=== PATIENT | female | born 1950 | race Caucasian/White ===

== ENCOUNTER → 2021-02-22 | Outpatient (CLI) | payer MEDICARE | LOC: ZCOL.LAB 16:59 | DX: I87.319 Chronic venous hypertension (idiopathic) with ulcer of unspecified lower extremity (principal) ==

== ENCOUNTER 2023-06-03 11:49 | Inpatient (IN) | payer MEDICARE ==
[~2023-06-03] VITALS: Ht 172.7 cm; Wt 132.0 kg
[~2023-06-03 11:49] MED LIST: ASPIRIN 81M81 MG/TA2 PO; CEFTIN500 MG PO; DECADRON6 MG PO; DOXYCYCLINE 10100 MG PO; FOLIC ACID 11 MG/TA1 PO; GLUCOPHAGE1000 MG PO; HYZAAR 50-12.1 UDTAB PO; KCL100IV; KLOR-CON M1010 MEQ PO; LASIX 20MG TABL20 MG PO; LEXAPRO20 MG PO; MUCINEX 60600 MG/TA1 PO; NATURE'S BLEND100 M2 PO; OXYGEN NASAL.CANN; PAXLOVID 150-11 EACH PO; VITAMIND3 5000 PO
[2023-06-03] MEDS ORDERED: HYDROmorphone 0.5 MG/0.5 ML SYRINGE IV ONE (12:00)
[2023-06-03 12:15] LABS: BASO % 0.2 % (0.0-2.0); EOS # 0.1 K/mm3 (0.0-0.7); EOS % 0.9 % (0.0-4.0); GRAN # 8.2 K/mm3 (1.4-6.5); GRAN % 79.2 % (42.2-75.2); HEMOGLOBIN 11.6 g/dl (12.5-16.0); LYMPH # 1.2 K/mm3 (1.2-3.4); LYMPH % 11.8 % (20.0-51.0); MEAN CELL VOLUME 92 fl (80.0-100.0); MEAN CORPUSCULAR HEMOGLOBIN 30 pg (27-31); MEAN CORPUSCULAR HGB CONC 33 g/dl (33.0-37.0); MEAN PLATELET VOLUME 10.5 fl (7.4-10.4); MONO # 0.8 K/mm3 (0.1-0.6); MONO % 7.4 % (1.7-9.3); PLATELET COUNT 183 K/mm3 (130-400); RED BLOOD COUNT 3.81 M/mm3 (4.10-5.30); REDCELL DISTRIBUTION WIDTH-CV 14.7 % (11.5-14.5)
[2023-06-03] MEDS ORDERED: Ondansetron 4 MG/2 ML VIAL IV ONE (12:15)
[2023-06-03] MEDS ORDERED: NS 1,000 ML IV ONE (12:15)
[2023-06-03 12:19] LABS: HEMATOCRIT 34.9 % (37.0-47.0)
[2023-06-03 12:36] LABS: ALBUMIN 3.4 gm/dL (3.4-4.8); BILIRUBIN,TOTAL 1.2 mg/dL (0.2-1.2); CALCIUM 8.7 mg/dL (8.4-10.2); CREATININE, serum 1.12 mg/dL (0.57-1.11); POTASSIUM 3.5 mmol/L (3.5-4.5); TOTAL PROTEIN 7.9 gm/dL (6.2-8.1)
[2023-06-03 13:00] VITALS: BP_SYST 148
[2023-06-03] MEDS ORDERED: Iohexol 300 - 100 ML VIAL IV ONE (13:05)
[2023-06-03] MEDS ORDERED: LIPITOR20 MG PO (14:24)
[2023-06-03] MEDS ORDERED: PROTONIX 40MG T40 MG PO (14:24)
[2023-06-03] MEDS ORDERED: 1/2 NS & 20 mEq KCl 1,000 ML IV SCH (15:15)
[2023-06-03] MEDS ORDERED: Morphine 4 MG/ML VIAL IV PRN (15:15)
[2023-06-03] MEDS ORDERED: Acetaminophen 500 MG TAB PO PRN (15:15)
[2023-06-03] MEDS ORDERED: Pantoprazole 40 MG in NS 10 ML IV SCH (15:17)
[2023-06-03] MEDS ORDERED: Ondansetron 4 MG/2 ML VIAL IV PRN (15:30)
[2023-06-03] MEDS ORDERED: Insulin Aspart (NovoLOG) SQ SCH ×2 (16:00→18:28)
--- NOTE | 2023-06-03 16:15 | NUR ---
pt admitted to room from ED. pt a&ox3 sitting in recliner. vss. pt rates pain an 8/. pt denies nausea. med rec and admission assessment complete. INT to and RF patent. pt denies needs at this time. call light in reach.
[2023-06-03 16:18] VITALS: BP 148/71; PULSE 106; TEMP 99.5
[2023-06-03 17:02] VITALS: BP_SYST 148
[2023-06-03] MEDS ORDERED: Glucagon 1 MG VIAL IM PRN (18:45)
[2023-06-03] MEDS ORDERED: Dextrose 50% Water 25 GM/50 ML SYRINGE IV PRN (18:45)
[2023-06-03] MEDS ORDERED: Dextrose (Glucose) 15 GM (4 x 3.75 GM) Chewable TABLET PACK PO PRN (18:45)
[2023-06-03 20:00] VITALS: BP 111/65; PULSE 108; TEMP 98.3
[2023-06-03] MEDS ORDERED: HYDROcodone/Acetaminophen 10-325 MG TAB PO PRN (20:45)
[2023-06-03] MEDS ORDERED: Naloxone 0.4 MG/ML VIAL IV PRN (20:45)
[2023-06-03] MEDS ORDERED: Ketorolac 15 MG/ML VIAL IV ONE (20:45)
[2023-06-03] MEDS ORDERED: Melatonin 3 MG TAB PO PRN (20:45)
--- NOTE | 2023-06-03 20:45 | NUR ---
PT A&O SITTING UP IN CHAIR. PT REPORTS NOT BEING ABLE TO GET COMFORTABLE & PAIN BEING 8/10 TO RLQ ABD THAT MORPHINE IS NOT CONTROLING. HOSPITALSIT AWARE & NEW ORDERS FOR PO NORCO & ONE TIME DOSE OF IV TORADOL. IVF INFUSING TO LEFT HAND. DENYING N/V OR FURTHER NEEDS. CALL LIGHT IN REACH.
[2023-06-03 21:00] VITALS: BP_SYST 111
[2023-06-03] MEDS ORDERED: Sennosides/Docusate 8.6-50 MG TAB PO SCH (21:00)
[2023-06-03 23:48] VITALS: BP 97/57; PULSE 89; TEMP 98.4
[2023-06-04] VITALS (12 sets, daily range): BP systolic 97–147; BP diastolic 54–79; PULSE 79–105; TEMP 97.7–99.7
--- NOTE | 2023-06-04 00:07 | NUR ---
PT REPORTS PAIN IS MORE TOLERABLE NOW. RESTING COMFORTABLY IN CHAIR WITH CALL LIGHT IN REACH.
--- NOTE | 2023-06-04 05:11 | NUR ---
PT RESTING IN CHAIR WITH UNLABORED RESP. CALL LIGHT IN REACH
--- NOTE | 2023-06-04 07:00 | NUR ---
Pt doing okay this morning. Some complaints of pain, but reports it is tolerable. Pt getting up and around in her room independently. States that she is not hungry at this time, she is tolerating ice water with no issues
--- NOTE | 2023-06-04 10:12 | NUR ---
Pt just had increase in pain, rating it 8/10 and does appear in pain. PT reports just feeling really bloated. She is passing gas and is walking often in her room. PRN pain medication given at this time
[2023-06-04 11:03] LABS: BASO % 0.3 % (0.0-2.0); EOS % 0.1 % (0.0-4.0); GRAN # 11.2 K/mm3 (1.4-6.5); GRAN % 87.8 % (42.2-75.2); HEMATOCRIT 31.6 % (37.0-47.0); HEMOGLOBIN 10.3 g/dl (12.5-16.0); LYMPH # 0.9 K/mm3 (1.2-3.4); LYMPH % 7.1 % (20.0-51.0); MEAN CELL VOLUME 92 fl (80.0-100.0); MEAN CORPUSCULAR HEMOGLOBIN 30 pg (27-31); MEAN CORPUSCULAR HGB CONC 33 g/dl (33.0-37.0); MEAN PLATELET VOLUME 10.8 fl (7.4-10.4); MONO # 0.5 K/mm3 (0.1-0.6); MONO % 4.1 % (1.7-9.3); PLATELET COUNT 151 K/mm3 (130-400); RED BLOOD COUNT 3.45 M/mm3 (4.10-5.30); REDCELL DISTRIBUTION WIDTH-CV 15.1 % (11.5-14.5)
[2023-06-04 11:26] LABS: ALBUMIN 2.8 gm/dL (3.4-4.8); BILIRUBIN,TOTAL 1.9 mg/dL (0.2-1.2); CALCIUM 8.3 mg/dL (8.4-10.2); CREATININE, serum 1.46 mg/dL (0.57-1.11); POTASSIUM 3.6 mmol/L (3.5-4.5); TOTAL PROTEIN 7.3 gm/dL (6.2-8.1)
[2023-06-04 11:30] LABS: MAGNESIUM 0.9 mg/dL (1.6-2.6)
--- NOTE | 2023-06-04 12:00 | NUR ---
Discussed labs with MOMO Gil
[2023-06-04] MEDS ORDERED: Magnesium Sulfate 8% 50 ML IV ONE (12:30)
--- NOTE | 2023-06-04 14:26 | NUR ---
child day care center worker and Student, Jeanette, met with patient to discuss discharge planning. Patient lives near [place] by herself. Best point of contact is Mick (son) P# [phone] and Tex (son) P# [phone]. PCP is Dr. Rocha, pharmacy is [facility]. No issues affording medications. Patient reports she believes her DPOA-HC are her sons and they are listed in her living will. No DME and reports to be independent with ADLS. No falls in the last few months. Patient reports she normally drives herself to appointments. Patient does not have home health services and would like to return home at time of discharge. Discharge plan: Home
--- NOTE | 2023-06-04 17:00 | NUR ---
Pt overall doing okay. She is tolerating clear liquids okay, just does not have much of an appetite, not drinking much for liquids. Pt getting around in her room independently. PRN oral pain medication is working okay for her. Pt sitting up on bench in room, she states the bed is not comfortable at all for her. No other needs, will continue to monitor
--- NOTE | 2023-06-04 19:26 | NUR ---
report received from sarah tirado. pt sitting on window seat. pt denies pain. call light in reach. all needs met at this time.
--- NOTE | 2023-06-04 21:58 | NUR ---
shift assessment complete, see documentation. pt denies pain. pt abx running to left wrist iv without issue. pt tolerated hs meds well. call light in reach. all needs met at this time.
[2023-06-05] VITALS (12 sets, daily range): BP systolic 117–146; BP diastolic 71–77; PULSE 75–93; TEMP 97.8–99
[2023-06-05 07:03] LABS: BASO % 0.3 % (0.0-2.0); EOS % 0.1 % (0.0-4.0); GRAN # 11.2 K/mm3 (1.4-6.5); GRAN % 87.2 % (42.2-75.2); LYMPH # 0.9 K/mm3 (1.2-3.4); MEAN CELL VOLUME 90 fl (80.0-100.0); MEAN CORPUSCULAR HGB CONC 33 g/dl (33.0-37.0); MEAN PLATELET VOLUME 11.3 fl (7.4-10.4); MONO # 0.5 K/mm3 (0.1-0.6); MONO % 4.1 % (1.7-9.3); PLATELET COUNT 161 K/mm3 (130-400)
[2023-06-05 07:05] LABS: HEMATOCRIT 29.7 % (37.0-47.0); HEMOGLOBIN 9.9 g/dl (12.5-16.0); MEAN CORPUSCULAR HEMOGLOBIN 30 pg (27-31)
[2023-06-05 07:15] LABS: CALCIUM 8.4 mg/dL (8.4-10.2); CREATININE, serum 1.49 mg/dL (0.57-1.11); MAGNESIUM 1.5 mg/dL (1.6-2.6); POTASSIUM 3.6 mmol/L (3.5-4.5)
--- NOTE | 2023-06-05 07:33 | NUR ---
pt a&ox3 sitting on window bench. vss. pt rates pain a 5/10, norco given per emar. BGL 129, no insulin given per SS. pt tolerating clear liquid diet. right forearm IV patent. pt denies needs at this time. call light in reach.
[2023-06-05] MEDS ORDERED: Escitalopram 10 MG TAB PO SCH (09:00)
[2023-06-05] MEDS ORDERED: Magnesium Sulfate 4% 50 ML IV ONE (13:30)
--- NOTE | 2023-06-05 14:08 | NUR ---
Initial visit; Patient thanked Emb[employer]ded [employer] Software Developer for looking in on her and offering God's blessings and to keep her in Embedded [employer] Software Developer's prayers. Bria and Emb[employer]ded [employer] Software Developer had a chance to visit though it was more about her physical health than her feelings about how she was coping with being ill mentally. Bria is [employer] so she may have someone with whom to talk in her latter-day.
--- NOTE | 2023-06-05 20:04 | NUR ---
report received from luis manuel tirado. pt sitting on windowseat. pt denies pain. call light in reach. all needs met at this time.
--- NOTE | 2023-06-05 22:08 | NUR ---
shift assessment complete, see documentation. pt denies pain. zosyn running to left wrist iv without issue. pt continues with ind amb and steady gait. pt tolerated hs meds. call light in reach. all needs met at this time.
[2023-06-06] VITALS (7 sets, daily range): BP systolic 115–146; BP diastolic 67–76; PULSE 75–81; TEMP 97.7–98.2
--- NOTE | 2023-06-06 05:00 | NUR ---
mepilex removed so pt could have bm. she requested one to be put on later today. zosyn running to right wrist iv without issue. pt denies pain. call light in reach. all needs met at this time.
[2023-06-06 07:13] LABS: BASO % 0.3 % (0.0-2.0); EOS # 0.1 K/mm3 (0.0-0.7); EOS % 0.5 % (0.0-4.0); GRAN # 10.1 K/mm3 (1.4-6.5); GRAN % 86.1 % (42.2-75.2); HEMOGLOBIN 10.5 g/dl (12.5-16.0); LYMPH # 0.8 K/mm3 (1.2-3.4); MEAN CELL VOLUME 93 fl (80.0-100.0); MEAN CORPUSCULAR HEMOGLOBIN 30 pg (27-31); MEAN CORPUSCULAR HGB CONC 32 g/dl (33.0-37.0); MEAN PLATELET VOLUME 10.9 fl (7.4-10.4); MONO # 0.6 K/mm3 (0.1-0.6); MONO % 5.3 % (1.7-9.3); PLATELET COUNT 179 K/mm3 (130-400); RED BLOOD COUNT 3.52 M/mm3 (4.10-5.30); REDCELL DISTRIBUTION WIDTH-CV 15.2 % (11.5-14.5)
[2023-06-06 07:16] LABS: HEMATOCRIT 32.8 % (37.0-47.0)
[2023-06-06 07:25] LABS: CREATININE, serum 1.72 mg/dL (0.57-1.11); MAGNESIUM 2.1 mg/dL (1.6-2.6); POTASSIUM 3.6 mmol/L (3.5-4.5)
[2023-06-06] MEDS ORDERED: Amoxicillin/Clavulanate K+ 875/125 MG TAB PO SCH (09:30)
[2023-06-06] MEDS ORDERED: metroNIDAZOLE 250 MG TAB PO SCH (09:30)
[2023-06-06] MEDS ORDERED: Polyethylene Glycol 3350 17 GM PDS PO SCH (09:30)
[2023-06-06] MEDS ORDERED: AMOXICILLIN 8751 TAB PO (09:42)
[2023-06-06] MEDS ORDERED: FLAGYL500 MG PO (09:42)
[2023-06-06] MEDS ORDERED: NORCO 325 MG-51 TAB PO (09:44)
[2023-06-06] MEDS ORDERED: LEADER CLE17 GM/Dose PO (09:45)
--- NOTE | 2023-06-06 10:16 | NUR ---
Pt medications switched to oral. I did give her some crackers to eat with medications. PRN pain medication given as well as mirilax. Pt reported feeling like she needs to have bowel movement, but has abd pain when straining. New mepilex applied to coccyx. Pt aware that the plan is to go home today. Informed her that her presciptions were sent to [facility]. PT reports that her ride will be here around noon
--- NOTE | 2023-06-06 11:47 | NUR ---
Reviewed discharge instructions with pt. Discussed follow up appointments and prescriptions. Pt verbalized understanding. Informed her to notify me when her ride gets here. Pt had stated earlier that he would be here around 1pm
--- NOTE | 2023-06-06 16:15 | NUR ---
easement worker was notified patient is ready for discharge home. TIFFANIE and TIFFANIE Student met with patient and confirmed patient does not want home health services. SW reviewed the important message from [employer]. Patient understood, signed. SW made a copy, placed original in the chart and provided the copy to the patient. Discharge plan: Home
== END 2023-06-06 13:05 | disposition home or self-care (01) | DRG 372 ==
LOC: COL.ER 11:49 → SURG 14:06
PROVIDERS: Physician Assistant; ADMIT Internal Medicine
DX: K35.201 Acute appendicitis with generalized peritonitis, with perforation, without abscess (principal); N17.9 Acute kidney failure, unspecified; F17.210 Nicotine dependence, cigarettes, uncomplicated; F32.A Depression, unspecified; K21.9 Gastro-esophageal reflux disease without esophagitis; E78.5 Hyperlipidemia, unspecified; I12.9 Hypertensive chronic kidney disease with stage 1 through stage 4 chronic kidney disease, or unspecified chronic kidney disease; E11.22 Type 2 diabetes mellitus with diabetic chronic kidney disease; Z20.822 Contact with and (suspected) exposure to COVID-19; N18.9 Chronic kidney disease, unspecified; E83.42 Hypomagnesemia; Z90.710 Acquired absence of both cervix and uterus; Z79.84 Long term (current) use of oral hypoglycemic drugs; Z79.899 Other long term (current) drug therapy; Z88.0 Allergy status to penicillin; Z86.16 Personal history of COVID-19; Z23 Encounter for immunization
CPT/HCPCS: C9113; J1170; J1815; J1885; J2270; J2405; J2543; J3475; J3480; J7030; Q9967